=== PATIENT | female | born 1975 | race Caucasian/White ===

== ENCOUNTER 2025-01-12 07:09 | Outpatient (CLI) | payer OTHER, SELFPAY ==
--- NOTE | 2025-01-12 08:39 | P.ANES_ITS ---
Anesthesia Charges Start Date/Time Anesthesia Start Date: 01/12/25 Anesthesia Start Time: 08:00 Stop Date/Time Anesthesia Stop Date: 01/12/25 Anesthesia Stop Time: 08:33 Coding CPT Codes CPT Codes: BRYANNA LWR INTST NDMO NOS - 69229 ([id number]) P1 - NORMAL HEALTHY PATIENT, QK - AUDITOR 2-4 CNCRNT ANES PROC, QX - SHELLACKER SVC W/ MED DIRECTION
--- NOTE | 2025-01-12 08:39 | W.ANESCHARGE ---
Anesthesia Charges Start Date/Time Anesthesia Start Date: 01/12/25 Anesthesia Start Time: 08:00 Stop Date/Time Anesthesia Stop Date: 01/12/25 Anesthesia Stop Time: 08:33 Coding CPT Codes CPT Codes: BRYANNA LWR INTST NDCA NOS - [id number] ([id number]) P1 - NORMAL HEALTHY PATIENT, QK - TACTICAL DEBRIEFER OFFICER 2-4 CNCRNT ANES PROC, QX - SUPERVISOR/PORT DIRECTOR SVC W/ MED DIRECTION
--- NOTE | 2025-01-12 08:42 | P.ANES_ITS ---
Anesthesia Charges Start Date/Time Anesthesia Start Date: 01/12/25 Anesthesia Start Time: 08:00 Stop Date/Time Anesthesia Stop Date: 01/12/25 Anesthesia Stop Time: 08:33 Coding CPT Codes CPT Codes: BRYANNA LWR INTST NDKS NOS - [id number] ([id number]) P1 - NORMAL HEALTHY PATIENT, QK - PARENT TRAINER 2-4 CNCRNT ANES PROC, QX - YEAST PUMPER SVC W/ MED DIRECTION
--- NOTE | 2025-01-12 08:42 | W.ANESCHARGE ---
Anesthesia Charges Start Date/Time Anesthesia Start Date: 01/12/25 Anesthesia Start Time: 08:00 Stop Date/Time Anesthesia Stop Date: 01/12/25 Anesthesia Stop Time: 08:33 Coding CPT Codes CPT Codes: BRYANNA LWR INTST NDNM NOS - [id number] ([id number]) P1 - NORMAL HEALTHY PATIENT, QK - SUPERVISOR POWDERED SUGAR 2-4 CNCRNT ANES PROC, QX - MEDICAL NURSE SVC W/ MED DIRECTION
== END 2025-01-12 07:10 | disposition home or self-care (01) ==
PROVIDERS: PCP Physician Assistant Medical; Visit Provider Surgery
DX: Z12.11 Encounter for screening for malignant neoplasm of colon (principal); D12.8 Benign neoplasm of rectum; K63.89 Other specified diseases of intestine; K57.30 Diverticulosis of large intestine without perforation or abscess without bleeding
CPT/HCPCS: 00811; 45380; 45385; 88305; J2704

== ENCOUNTER 2025-02-16 12:54 | Outpatient (CLI) | payer OTHER, SELFPAY ==
--- NOTE | 2025-02-16 13:20 | CRLHL7_ITS ---
For Patients: As a result of the Century Cures Act, medical imaging exams and procedure reports are released immediately into your electronic medical record. You may view this report before your referring provider. If you have questions, please contact your health care provider. BILATERAL SCREENING MAMMOGRAM WITH COMPUTER-AIDED DETECTION AND TOMOSYNTHESIS TECHNIQUE: CC and MLO views were obtained. These mammographic images have been obtained using full-field digital technique. These mammographic images were interpreted with the benefit of computer-aided detection. Breast Tomosynthesis was used in this interpretation. COMPARISON FILM: 12/11/16. FINDINGS: There are scattered areas of fibroglandular density. IMPRESSION: There is no radiographic evidence for malignancy. ASSESSMENT: BI-RADS Category 2: Benign RECOMMENDATION: Routine screening mammogram in 1 year. A lay language report of this examination will be provided to the patient. Junaid Lewis M.D. Diagnostic Radiologist [email or web address] SP/Dictated by: Junaid Lewis MD @ 02/24/2025 11:37:00 AM (Electronically Signed)
== END 2025-02-16 12:55 | disposition home or self-care (01) ==
LOC: MAMMO 12:55
PROVIDERS: PCP Physician Assistant Medical; Visit Provider Physician Assistant Medical
DX: Z12.31 Encounter for screening mammogram for malignant neoplasm of breast (principal)
CPT/HCPCS: 77063; 77067

== ENCOUNTER 2025-11-05 12:30 | Outpatient (CLI) | payer OTHER, SELFPAY | END 2025-11-05 12:31 | disposition home or self-care (01) | PROVIDERS: PCP Physician Assistant Medical; Visit Provider Physician Assistant Medical | DX: Z00.00 Encounter for general adult medical examination without abnormal findings (principal) | CPT/HCPCS: 80053; 82607 ==